=== PATIENT | male | born 1970 | race Caucasian/White ===

== ENCOUNTER 2019-10-04 17:53 | Inpatient (IN) | payer OTHER ==
[2019-10-04 18:12] VITALS: BMI 27.4
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
[2019-10-04] MEDS ORDERED: METHOCARBAMOL 500 MG TABLET PO PRN (19:28)
[2019-10-04] MEDS ORDERED: hydrOXYzine PAMOATE 25 MG CAPSULE (FP) PO PRN (19:28)
[2019-10-04] MEDS ORDERED: METHADONE HCL 10 MG TABLET (FOR DETOX USE ONLY) PO ONE (19:28)
[2019-10-04] MEDS ORDERED: NALOXONE HCL 0.4 MG/ML VIAL IM PRN (19:28)
[2019-10-04] MEDS ORDERED: MAGNESIUM CITRATE 300 ML BOTTLE PO PRN (19:28)
[2019-10-04] MEDS ORDERED: MAG HYDROX/AL HYDROX/SIMETH 30 ML UNIT-DOSE CUP PO PRN (19:28)
[2019-10-04] MEDS ORDERED: DICYCLOMINE HCL 10 MG CAPSULE PO PRN (19:28)
[2019-10-04] MEDS ORDERED: diazePAM 5 MG TABLET PO PRN (19:28)
[2019-10-04] MEDS ORDERED: guaiFENesin 200 MG/10 ML 10 ML UNIT-DOSE CUPS PO PRN (19:28)
[2019-10-04] MEDS ORDERED: NICOTINE POLACRILEX 2 MG GUM BUC PRN (19:28)
[2019-10-04] MEDS ORDERED: IBUPROFEN 400 MG TABLET (FP) PO PRN (19:28)
[2019-10-04] MEDS ORDERED: ONDANSETRON *ODT* 4 MG TABLET SL ONE (19:28)
[2019-10-04] MEDS ORDERED: ACETAMINOPHEN 325 MG TABLET (FP) PO PRN ×2 (19:28)
[2019-10-04] MEDS ORDERED: BISMUTH SUBSALICYLATE 524 MG/30 ML UD PO PRN (19:28)
[2019-10-04] MEDS ORDERED: MENTHOL/PHENOL 1 EACH UD MM PRN (19:28)
[2019-10-04] MEDS ORDERED: MAGNESIUM HYDROX 2400MG/30ML ORAL SUSPENSION 30 ML CUP PO PRN (19:28)
[2019-10-04] MEDS ORDERED: P-EPHED 60MG/TRIPROLIDI 2.5MG TABLET PO PRN (19:28)
[2019-10-04] MEDS ORDERED: cloNIDine HCL 0.1 MG TABLET PO PRN (19:28)
[2019-10-04] MEDS ORDERED: TRIMETHOBENZAMIDE HCL 200MG/2ML INJ IM PRN (19:37)
[2019-10-04] MEDS ORDERED: THIAMINE HCL 100 MG TABLET (FP) PO SCH (22:00)
[2019-10-04] MEDS ORDERED: MELATONIN 5 MG TABLETS PO SCH (22:00)
[2019-10-04] MEDS: diazePAM 5 MG TABLET PO SCH (22:31)
[2019-10-05] MEDS: diazePAM 5 MG TABLET PO SCH (06:09)
[2019-10-05] MEDS ORDERED: METHADONE HCL 10 MG TABLET (FOR DETOX USE ONLY) ONE (08:42)
[2019-10-05] MEDS ORDERED: METHADONE HCL 5 MG TABLET (FOR DETOX USE ONLY) ONE (08:42)
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
--- NOTE | 2019-10-05 09:24 | EKG ---
Test Reason : Blood Pressure : / mmHG Vent. Rate : 054 BPM Atrial Rate : 054 BPM P-R Int : 150 ms QRS Dur : 100 ms QT Int : 432 ms P-R-T Axes : -13 073 054 degrees QTc Int : 409 ms SINUS BRADYCARDIA OTHERWISE NORMAL ECG NO PREVIOUS ECGS AVAILABLE Confirmed by Sawyer Alvarado ([id number]) on 10/05/2019 9:24:21 AM Referred By: Confirmed By:Sawyer Alvarado
[2019-10-05] MEDS ORDERED: hydrOXYzine PAMOATE 50 MG CAPSULE (FP) PO PRN (09:31)
[2019-10-05 09:52] VITALS: BP 104/74; PULSE 63; TEMP 96.9
[2019-10-05] MEDS ORDERED: VENLAFAXINE HCL 150 MG E.R. CAPSULE PO SCH (10:00)
[2019-10-05] MEDS ORDERED: METHADONE (DETOX) 20 MG, METHADONE (DETOX) 5 MG PO ONE (10:00)
[2019-10-05] MEDS ORDERED: NICOTINE 14 MG/24 HOURS TOPICAL PATCH TD SCH (10:00)
[2019-10-05] MEDS ORDERED: PRENATAL VITAMINS W/ FOLIC ACID TABLET (FP) PO SCH (10:00)
[2019-10-05] MEDS ORDERED: ESCITALOPRAM OXALATE 10 MG TABLET PO SCH (10:00)
[2019-10-05 11:04] LABS: HEMATOCRIT 41.5 % (35.4-49); HEMOGLOBIN 14.2 GM/dL (11.7-16.9); MCH 32.1 pg (25.7-33.7); MCHC 34.2 g/dl (32.0-35.9); MEAN PLT VOLUME 10.5 fl (7.5-11.1); PLATELET COUNT 136 K/MM3 (134-434); RBC 4.41 M/mm3 (4.00-5.60); RDW 12.5 % (11.9-15.9); WHITE BLOOD COUNT 6.1 K/mm3 (4.0-10.0)
[2019-10-05 11:14] LABS: URINE APPEARANCE CLEAR; URINE BILIRUBIN NEGATIVE (NEGATIVE); URINE COLOR YELLOW; URINE GLUCOSE (UA) NEGATIVE (NEGATIVE); URINE KETONE NEGATIVE (NEGATIVE); URINE LEUK ESTERASE NEGATIVE (NEGATIVE); URINE NITRITE NEGATIVE (NEGATIVE); URINE PROTEIN NEGATIVE (NEGATIVE)
[2019-10-05 11:18] LABS: BILIRUBIN,TOTAL 0.9 mg/dL (0.2-1); BLOOD UREA NITROGEN 12.9 mg/dL (7-18); CALCIUM 9.3 mg/dL (8.5-10.1); CREATININE 0.9 mg/dL (0.55-1.3); POTASSIUM 4.5 mmol/L (3.5-5.1); TOT PROT 8.2 g/dl (6.4-8.2)
--- NOTE | 2019-10-05 13:36 | DS ---
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 to call to the methadone program mr kahn insists to leave the detox to go to [address] "every day" in order to receive "welfare" benefits General Appearance: Yes: Moderate Distress, Tremorous, Sweating, Anxious HEENTM: Yes: EOMI, Normocephalic, Normal Voice, RACHEL, Pharynx Normal, Other (POOR DENTITION) Respiratory: Yes: Chest Non-Tender, Lungs Clear, Normal Breath Sounds, No Respiratory Distress, No Accessory Muscle Use Neck: Yes: No masses,lesions,Nodules, Supple, Trachea in good position Breast: Yes: Breasts Symetrical Cardiology: Yes: Regular Rhythm, Regular Rate, S1, S2 Abdominal: Yes: Normal Bowel Sounds, Non Tender, Soft Genitourinary: Yes: Within Normal Limits Back: Yes: Normal Inspection Musculoskeletal: Yes: full range of Motion, Other (DRAG LEFT LEG WHEN WALKING) Extremities: Yes: Normal Capillary Refill, Normal Range of Motion, Non-Tender, Tremors, Other (LEFT FOOT CONTRACTURES OF TOES) Neurological: Yes: Fully Oriented, Alert, Motor Strength 5/5, Depressed Affect, Other (HEARING LOSS OF BOTH EARS) Integumentary: Yes: Cold, Clammy, Track Braga Lymphatic: Yes: Within Normal Limits Pertinent Past History: time for discharge 58 minutes benefits of valium and methadone regimen completion discussed with mr kahn - Physical Exam Results Vital Signs: Vital Signs Temperature 96.9 F L 10/05/19 08:52 Pulse Rate 63 10/05/19 08:52 Respiratory Rate 18 10/05/19 08:52 Blood Pressure 104/74 10/05/19 08:52 O2 Sat by Pulse Oximetry (%) 99 10/05/19 07:39 Pertinent Admission Physical Exam Findings: alcohol and opiate withdrawal Laboratory Tests 10/05/19 10/05/19 10/05/19 08:00 08:00 08:00 WBC 6.1 RBC 4.41 Hgb 14.2 Hct 41.5 MCV 94.0 MCH 32.1 MCHC 34.2 RDW 12.5 Plt Count 136 MPV 10.5 Sodium 139 Potassium 4.5 Chloride 104 Carbon Dioxide 30 Anion Gap 5 L BUN 12.9 Creatinine 0.9 Est GFR (CKD-EPI)AfAm 117.47 Est GFR (CKD-EPI)NonAf 101.35 Random Glucose 74 Calcium 9.3 Total Bilirubin 0.9 AST 37 ALT 48 Alkaline Phosphatase 82 Total Protein 8.2 Albumin 4.0 Urine Color Urine Appearance Urine pH Ur Specific [place] Urine Protein Urine Glucose (UA) Urine Ketones Urine Blood Urine Nitrite Urine Bilirubin Urine Urobilinogen Ur Leukocyte Esterase Syphilis Serology Non-reactive 10/05/19 08:00 WBC RBC Hgb Hct MCV MCH MCHC RDW Plt Count MPV Sodium Potassium Chloride Carbon Dioxide Anion Gap BUN Creatinine Est GFR (CKD-EPI)AfAm Est GFR (CKD-EPI)NonAf Random Glucose Calcium Total Bilirubin AST ALT Alkaline Phosphatase Total Protein Albumin Urine Color Yellow Urine Appearance Clear Urine pH 7.0 Ur Specific [place] 1.018 Urine Protein Negative Urine Glucose (UA) Negative Urine Ketones Negative Urine Blood Negative Urine Nitrite Negative Urine Bilirubin Negative Urine Urobilinogen 1.0 Ur Leukocyte Esterase Negative Syphilis Serology lab noted - Treatment Hospital Course: Detox Protocol Followed, Discharged Condition Good Patient has Accepted a Rehab Referral to: [facility] - Medication Discharge Medications: Ambulatory Orders Alprazolam 2 mg PO PRN MDD 4 TABS/DAILY 10/04/19 Escitalopram Oxalate [Lexapro -] 10 mg PO DAILY 10/04/19 Venlafaxine HCl ER [Effexor Xr -] 150 mg PO DAILY 10/04/19 hydrOXYzine PAMOATE [Vistaril -] 25 mg PO TID 10/04/19 - Diagnosis (1) Alcohol dependence with uncomplicated withdrawal Status: Acute (2) Opioid dependence with withdrawal Status: Acute (3) Substance induced mood disorder Status: Suspected (4) Hepatitis C Status: Chronic Qualifiers: Viral hepatitis chronicity: carrier Qualified Code(s): B18.2 - Chronic viral hepatitis C (5) Nicotine dependence Status: Acute Qualifiers: Nicotine product type: cigarettes Substance use status: in withdrawal Qualified Code(s): F17.213 - Nicotine dependence, cigarettes, with withdrawal - AMA Did Patient Leave Against Medical Advice: Yes CIWA Score - CIWA Score Nausea/Vomitin-No Nausea/No Vomiting Muscle Tremors: None Anxiety: 4-Mod. Anxious/Guarded Agitation: 3 Paroxysmal Sweats: 4-Forehead w/Sweat Beads Orientation: 0-Oriented Tacttile Disturbances: 0-None Auditory Disturbances: 0-None Visual Disturbances: 0-None Headache: 0-None Present CIWA-Ar Total Score: 11 COWS (PN) - Opiate Withdrawal Resting Pulse: 0= MI 80 or Below Sweatin= No chills or Flushing Restless Observation: 1= Difficult to Sit Still Pupil Size: 1= Pupils >than Normal Bone or Joint Aches: 1= Mild Discomfort Runny Nose/ Eye Tearin= Nasal Congestion GI Upset > 30mins: 2= Nausea/Diarrhea Tremor Observation of Outstretched Hands: 2= Slight Tremor Visible Yawning Observation: 0= None Anxiety or Irritability: 2=Irritable/Anxious Goose Flesh Skin: 0=Smooth Skin COWS Score: 10
[2019-10-05] MEDS ORDERED: SUVOREXANT 10 MG TABLET PO PRN (22:00)
[2019-10-06] MEDS ORDERED: diazePAM 5 MG TABLET PO SCH (06:00)
[2019-10-06] MEDS ORDERED: METHADONE HCL 10 MG TABLET (FOR DETOX USE ONLY) PO ONE (10:00)
[2019-10-07] MEDS ORDERED: diazePAM 5 MG TABLET PO ONE (06:00)
[2019-10-07] MEDS ORDERED: METHADONE (DETOX) 10 MG, METHADONE (DETOX) 5 MG PO ONE (10:00)
[2019-10-08] MEDS ORDERED: METHADONE HCL 10 MG TABLET (FOR DETOX USE ONLY) PO ONE (10:00)
[2019-10-09] MEDS ORDERED: METHADONE HCL 5 MG TABLET (FOR DETOX USE ONLY) PO ONE (06:00)
== END 2019-10-05 12:16 | disposition left against medical advice (07) | DRG 770 ==
LOC: YASAS 17:53 → Y3N 19:44
PROVIDERS: ADMIT Allergy & Immunology; ATTEND Allergy & Immunology
PROC: HZ2ZZZZ Detoxification Services for Substance Abuse Treatment (ICD-10-PCS; principal; 2019-10-04)
DX: F11.23 Opioid dependence with withdrawal (principal); F10.230 Alcohol dependence with withdrawal, uncomplicated; F10.220 Alcohol dependence with intoxication, uncomplicated; F17.213 Nicotine dependence, cigarettes, with withdrawal; F19.24 Other psychoactive substance dependence with psychoactive substance-induced mood disorder; F19.280 Other psychoactive substance dependence with psychoactive substance-induced anxiety disorder; F19.282 Other psychoactive substance dependence with psychoactive substance-induced sleep disorder; F25.9 Schizoaffective disorder, unspecified; F31.9 Bipolar disorder, unspecified; B18.2 Chronic viral hepatitis C; J43.9 Emphysema, unspecified; H91.93 Unspecified hearing loss, bilateral; L90.5 Scar conditions and fibrosis of skin; Z86.59 Personal history of other mental and behavioral disorders; Z88.8 Allergy status to other drugs, medicaments and biological substances; Z86.79 Personal history of other diseases of the circulatory system; Z91.013 Allergy to seafood; Z91.018 Allergy to other foods; Z91.5 Personal history of self-harm
CPT/HCPCS: 36415; 80053; 81003; 85027; 86780; 93005; 93010; U0003

== ENCOUNTER 2020-08-02 14:45 | Emergency (ER) | payer OTHER ==
[2020-08-02 15:09] VITALS: TEMP 98.8; BMI 22.1
[2020-08-02 15:32] LABS: INR 1.2 (0.82-1.09); PROTHROMBIN TIME (PATIENT) 13.3 SEC (10.2-13.0)
[2020-08-02 15:39] LABS: HEMOGLOBIN 13.5 GM/dl (11.7-16.9)
[2020-08-02 15:42] LABS: HEMATOCRIT 40.5 % (35.4-49); MCH 32.5 pg (25.7-33.7); MCHC 33.3 g/dl (32.0-35.9); MEAN CELL VOLUME 97.5 fl (80-96); MEAN PLT VOLUME 10.2 fl (7.5-11.1); PLATELET COUNT 79 K/MM3 (134-434); RBC 4.15 M/mm3 (4.00-5.60); RDW 12.2 % (11.9-15.9); WHITE BLOOD COUNT 5.3 K/mm3 (4.0-10.8)
[2020-08-02 15:47] LABS: ALBUMIN 4.2 g/dl (3.4-5.0); ALK PHOS 53 U/L (45-117); ANION GAP 6 MMOL/L (8-16); CALCIUM 8.4 mg/dl (8.5-10); CHLORIDE 106 mmol/L (98-107); CO2 22 mmol/L (21-32); CREATININE 0.6 mg/dl (0.55-1.3); GLUCOSE,RANDOM 83 mg/dl (74-106); SGOT/AST 25 U/L (15-37); SGPT/ALT 17 U/L (13-61); SODIUM 134 mmol/L (136-145); TOT PROT 6.8 g/dl (6.4-8.2)
[2020-08-02 16:32] LABS: PLATELET ESTIMATE DECREASED
[2020-08-02 17:05] VITALS: BP 115/75; PULSE 61
== END 2020-08-02 17:00 | disposition home or self-care (01) ==
LOC: FER 14:45
DX: I49.3 Ventricular premature depolarization (principal)
CPT/HCPCS: 36415; 71045-TC-FY; 80053; 82550; 84484; 85025; 85610; 93005; 99284-25; C9803; U0003; U0005

== ENCOUNTER → 2020-08-02 | Day surgery (SDC) | payer OTHER ==
[2020-08-01 11:37] VITALS: BMI 22.1
[~2020-08-02] MED LIST: MIDAZOLAM HCL 2 MG/2 ML SINGLE DOSE VIAL ONE
[2020-08-02 12:53] VITALS: BP 101/67; PULSE 70; TEMP 98.4
== END | disposition home or self-care (01) ==
LOC: FASU-ENDO 12:22
PROVIDERS: ATTEND Internal Medicine Gastroenterology
PROC: 0DJ08ZZ Inspection of Upper Intestinal Tract, Via Natural or Artificial Opening Endoscopic (ICD-10-PCS; principal; 2020-08-02)
DX: Z53.09 Procedure and treatment not carried out because of other contraindication (principal); R10.9 Unspecified abdominal pain; R19.7 Diarrhea, unspecified

== ENCOUNTER 2021-03-30 04:46 | Day surgery (SDC) | payer OTHER ==
[2021-03-29 10:14] VITALS: BMI 26.2
[2021-03-30 12:44] VITALS: TEMP 97.8
[2021-03-30 13:17] VITALS: BP 116/73; PULSE 68
== END 2021-03-30 14:08 | disposition home or self-care (01) ==
LOC: JASU-ENDO 04:46
PROVIDERS: ATTEND Internal Medicine Gastroenterology
PROC: 0DB78ZX Excision of Stomach, Pylorus, Via Natural or Artificial Opening Endoscopic, Diagnostic (ICD-10-PCS; principal; 2021-03-30 12:15)
DX: K29.50 Unspecified chronic gastritis without bleeding (principal)
CPT/HCPCS: 88305-TC; 88342-TC

== ENCOUNTER 2021-12-12 04:12 | Day surgery (SDC) | payer OTHER ==
[2021-12-08 15:14] VITALS: BMI 24.4
[2021-12-12 08:18] VITALS: RESP 18
[2021-12-12] MEDS ORDERED: ePHEDrine SULFATE 50 MG/1 ML AMPULE ONE (10:36)
[2021-12-12 12:36] VITALS: BP 124/78; PULSE 61; TEMP 97.8
== END 2021-12-12 12:30 | disposition home or self-care (01) ==
LOC: JASU-SURG 04:12
PROVIDERS: ATTEND Urology
DX: Z53.8 Procedure and treatment not carried out for other reasons (principal)
CPT/HCPCS: 87086

== ENCOUNTER 2022-01-10 04:07 | Day surgery (SDC) | payer OTHER ==
[2022-01-08 11:37] VITALS: BMI 24.1
[2022-01-10] MEDS ORDERED: PROPOFOL 40 ML ONE (11:26)
[2022-01-10] MEDS ORDERED: MIDAZOLAM HCL 2 MG/2 ML SINGLE DOSE VIAL ONE (11:27)
[2022-01-10] MEDS ORDERED: VANCOMYCIN 1,000 MG VIAL (RESTRICTED TO ID ONLY) IVPB ONE (11:54)
[2022-01-10] MEDS ORDERED: ELECTROLYTE-148 SOLN 1,000 ML IV SCH (12:00)
[2022-01-10] MEDS ORDERED: PROMETHAZINE HCL 25 MG/1 ML VIAL IVPUSH PRN (12:34)
[2022-01-10] MEDS ORDERED: oxyCODONE HCL 5 MG TABLET PO PRN (12:34)
[2022-01-10 14:11] VITALS: TEMP 97.6
[2022-01-10 16:14] VITALS: BP 110/65; PULSE 62; RESP 18
== END 2022-01-10 15:05 | disposition home or self-care (01) ==
LOC: JASU-SURG 04:07
PROVIDERS: ATTEND Urology
PROC: 0VT08ZZ Resection of Prostate, Via Natural or Artificial Opening Endoscopic (ICD-10-PCS; principal; 2022-01-10 11:00)
DX: N40.1 Benign prostatic hyperplasia with lower urinary tract symptoms (principal); R33.8 Other retention of urine
CPT/HCPCS: 94760

== ENCOUNTER 2022-02-02 08:09 | Emergency (ER) | payer OTHER ==
[2022-02-02 08:16] VITALS: BP 121/78; PULSE 85; RESP 18; TEMP 98; BMI 47.0
[2022-02-02] MEDS ORDERED: LIDOCAINE HCL 2% JELLY 10 ML CARTRIDGE UR ONE (08:46)
[2022-02-02 09:28] LABS: BASO % 0.7 % (0-2.0); EOS % 1.3 % (0-4.5); HEMATOCRIT 44.2 % (35.4-49); HEMOGLOBIN 15.3 GM/dL (11.7-16.9); LYMPH % 27.2 % (8-40); MCH 33.2 pg (25.7-33.7); MCHC 34.6 g/dl (32.0-35.9); MEAN CELL VOLUME 95.9 fl (80-96); MEAN PLT VOLUME 10.4 fl (7.5-11.1); MONO % 8.5 % (3.8-10.2); NEUT % 62.3 % (42.8-82.8); PLATELET COUNT 167 10^3/uL (134-434); RBC 4.61 M/mm3 (4.00-5.60); RDW 12.6 % (11.9-15.9); WHITE BLOOD COUNT 4.5 K/mm3 (4.0-10.0)
[2022-02-02 09:32] LABS: EPI CELLS 4 /uL (0-25.1); HYALINE CASTS 1 /uL (0-3.1); PH,URINE 5.5 (5.0-8.0); URINE APPEARANCE CLOUDY; URINE BACTERIA 140 /uL (0-1359); URINE BILIRUBIN 1+ (NEGATIVE); URINE COLOR DK YELLOW; URINE GLUCOSE (UA) NEGATIVE (NEGATIVE); URINE KETONE 1+ (NEGATIVE); URINE LEUK ESTERASE 2+ (NEGATIVE); URINE NITRITE NEGATIVE (NEGATIVE); URINE PROTEIN 2+ (NEGATIVE); URINE WBC 2585 /uL (0-25.8)
[2022-02-02 09:49] LABS: URINE CRYSTALS NEGATIVE /hpf; URINE RBC 29.5 /uL (0-23.9); YEAST NEGATIVE (NEGATIVE)
[2022-02-02 09:59] LABS: ALBUMIN 4.1 g/dl (3.4-5.0); CALCIUM 9.4 mg/dL (8.5-10.1)
[2022-02-02 10:01] LABS: CREATININE 0.9 mg/dL (0.55-1.3)
[2022-02-02 10:04] LABS: BILIRUBIN,TOTAL 0.5 mg/dL (0.2-1); TOT PROT 7.5 g/dl (6.4-8.2)
== END 2022-02-02 11:03 | disposition left against medical advice (07) ==
LOC: JER 08:09
PROC: 0T9B70Z Drainage of Bladder with Drainage Device, Via Natural or Artificial Opening (ICD-10-PCS; principal; 2022-02-02)
DX: N30.01 Acute cystitis with hematuria (principal)
CPT/HCPCS: 36415; 80053; 81003; 85025; 87086; 99283-25

== ENCOUNTER 2022-02-03 14:02 | Emergency (ER) | payer OTHER ==
[2022-02-03 14:48] VITALS: BP 102/52; PULSE 66; RESP 20; TEMP 98.2; BMI 21.9
[2022-02-03] MEDS ORDERED: KETOROLAC TROMETHAMINE 30 MG/1 ML VIAL IM ONE (15:48)
[2022-02-03] MEDS ORDERED: LIDOCAINE HCL 2% JELLY 10 ML CARTRIDGE UR ONE (15:48)
[2022-02-03] MEDS ORDERED: traMADol HCL 50 MG TABLET PO ONE (15:48)
[2022-02-03] MEDS ORDERED: traMADol HCL 50 MG TABLET ONE (16:01)
[2022-02-03] MEDS ORDERED: KETOROLAC TROMETHAMINE 30 MG/1 ML VIAL ONE (16:01)
[2022-02-03] MEDS ORDERED: GENTAMICIN IVPB ONE (16:15)
[2022-02-03] MEDS ORDERED: WATER IVPB ONE (16:15)
[2022-02-03] MEDS ORDERED: DEXTROSE 5% IVPB ONE (16:15)
[2022-02-03] MEDS ORDERED: WATER IM SCH (16:30)
[2022-02-03] MEDS ORDERED: DEXTROSE 5% IM SCH (16:30)
[2022-02-03] MEDS ORDERED: GENTAMICIN IM SCH (16:30)
[2022-02-03] MEDS ORDERED: GENTAMICIN 80 MG IVPB ONE (16:38)
[2022-02-03] MEDS ORDERED: PREMIXED IVPB ONE (16:38)
[2022-02-03] MEDS ORDERED: LIDOCAINE HCL 2% JELLY 6 ML TP ONE (16:44)
[2022-02-03] MEDS ORDERED: GENTAMICIN SO4 80 MG/2 ML VIAL IM ONE (16:45)
[2022-02-03] MEDS ORDERED: GENTAMICIN SO4 80 MG/2 ML VIAL ONE (16:50)
== END 2022-02-03 21:14 | disposition home or self-care (01) ==
LOC: JER 14:02
PROC: 3E02329 Introduction of Other Anti-infective into Muscle, Percutaneous Approach (ICD-10-PCS; principal; 2022-02-03)
PROC: 3E0233Z Introduction of Anti-inflammatory into Muscle, Percutaneous Approach (ICD-10-PCS; 2022-02-03)
DX: N30.01 Acute cystitis with hematuria (principal)
CPT/HCPCS: 99284-25

== ENCOUNTER 2022-02-04 06:43 | Emergency (ER) | payer OTHER ==
[2022-02-04 06:49] VITALS: BMI 21.6
[2022-02-04] MEDS ORDERED: ACETAMINOPHEN 500 MG TABLET (FP) PO ONE (08:06)
[2022-02-04] MEDS ORDERED: ACETAMINOPHEN 500 MG TABLET (FP) ONE (08:25)
[2022-02-04 08:54] LABS: BASO % 0.3 % (0-2.0); EOS % 1.5 % (0-4.5); HEMATOCRIT 40.7 % (35.4-49); HEMOGLOBIN 14.1 GM/dL (11.7-16.9); LYMPH % 14.4 % (8-40); MCH 33.1 pg (25.7-33.7); MCHC 34.7 g/dl (32.0-35.9); MEAN CELL VOLUME 95.4 fl (80-96); NEUT % 74.8 % (42.8-82.8); PLATELET COUNT 140 10^3/uL (134-434); RBC 4.27 M/mm3 (4.00-5.60); RDW 12.5 % (11.9-15.9); WHITE BLOOD COUNT 7.7 K/mm3 (4.0-10.0)
[2022-02-04 08:58] LABS: PH,URINE 5.5 (5.0-8.0); URINE APPEARANCE CLEAR; URINE BILIRUBIN NEGATIVE (NEGATIVE); URINE COLOR ORANGE; URINE GLUCOSE (UA) NEGATIVE (NEGATIVE); URINE KETONE TRACE (NEGATIVE); URINE LEUK ESTERASE 2+ (NEGATIVE); URINE NITRITE NEGATIVE (NEGATIVE); URINE PROTEIN 2+ (NEGATIVE); URINE UROBILINOGEN 0.2 mg/dL (0.2-1.0)
[2022-02-04 09:01] LABS: INR 1.16 (0.83-1.09); PROTHROMBIN TIME (PATIENT) 13.4 SEC (9.7-13.0)
[2022-02-04 09:04] LABS: ACTIVATED PTT 33.4 SECONDS (25.2-36.5)
[2022-02-04 09:13] LABS: EPI CELLS 49 /uL (0-25.1); HYALINE CASTS 5 /uL (0-3.1); URINE BACTERIA 3 /uL (0-1359); URINE RBC 1381 /uL (0-23.9); URINE WBC 232 /uL (0-25.8)
[2022-02-04 09:21] LABS: BLOOD UREA NITROGEN 7.9 mg/dL (7-18); CALCIUM 9.3 mg/dL (8.5-10.1)
[2022-02-04 09:22] LABS: ALBUMIN 3.8 g/dl (3.4-5.0)
[2022-02-04 09:25] LABS: CREATININE 0.7 mg/dL (0.55-1.3)
[2022-02-04 09:26] LABS: BILIRUBIN,TOTAL 0.8 mg/dL (0.2-1)
[2022-02-04 10:48] VITALS: BP 111/60; PULSE 52; RESP 16; TEMP 98
== END 2022-02-04 10:48 | disposition home or self-care (01) ==
LOC: JER 06:43
DX: N13.9 Obstructive and reflux uropathy, unspecified (principal)
CPT/HCPCS: 36415; 80053; 81003; 85025; 85610; 85730; 86850; 86900; 86901; 87086; 99283-25

== ENCOUNTER 2022-02-22 06:41 | Emergency (ER) | payer OTHER ==
[2022-02-22 06:48] VITALS: BP 97/63; PULSE 85; RESP 17; TEMP 98.7; BMI 21.6
[2022-02-22] MEDS ORDERED: SODIUM CHLORIDE 1,000 ML IV STA (08:57)
[2022-02-22 09:22] LABS: HEMATOCRIT 43.3 % (35.4-49); HEMOGLOBIN 14.8 GM/dL (11.7-16.9); MCH 32.3 pg (25.7-33.7); MCHC 34.1 g/dl (32.0-35.9); MEAN CELL VOLUME 94.6 fl (80-96); MEAN PLT VOLUME 10.3 fl (7.5-11.1); PLATELET COUNT 90 10^3/uL (134-434); RBC 4.57 M/mm3 (4.00-5.60); RDW 12.5 % (11.9-15.9); WHITE BLOOD COUNT 2.6 K/mm3 (4.0-10.0)
[2022-02-22 09:41] LABS: EPI CELLS 6 /uL (0-25.1); HYALINE CASTS 162 /uL (0-3.1); PH,URINE 5.5 (5.0-8.0); URINE APPEARANCE CLOUDY; URINE BACTERIA 4 /uL (0-1359); URINE BILIRUBIN NEGATIVE (NEGATIVE); URINE COLOR DK YELLOW; URINE GLUCOSE (UA) NEGATIVE (NEGATIVE); URINE KETONE TRACE (NEGATIVE); URINE LEUK ESTERASE 2+ (NEGATIVE); URINE NITRITE NEGATIVE (NEGATIVE); URINE PROTEIN 1+ (NEGATIVE); URINE RBC 57 /uL (0-23.9); URINE WBC 894 /uL (0-25.8)
[2022-02-22 09:49] LABS: ALBUMIN 3.8 g/dl (3.4-5.0); BLOOD UREA NITROGEN 16.5 mg/dL (7-18); CALCIUM 8.9 mg/dL (8.5-10.1)
[2022-02-22 09:52] LABS: CREATININE 0.9 mg/dL (0.55-1.3)
[2022-02-22] MEDS ORDERED: PHENAZOPYRIDINE HCL 100 MG TABLET (FP) PO ONE (09:52)
[2022-02-22 09:53] LABS: BILIRUBIN,TOTAL 0.6 mg/dL (0.2-1); TOT PROT 7.2 g/dl (6.4-8.2)
[2022-02-22] MEDS ORDERED: PHENAZOPYRIDINE HCL 100 MG TABLET (FP) ONE (09:55)
[2022-02-22 10:15] LABS: ANISOCYTOSIS 0; HELMET CELLS 0; HOWELL-JOLLY BODIES 0; MACROCYTOSIS 0; OVALOCYTE 0; ROULEAU 0; SICKELED CELLS 0; TARGET CELLS 0; TEAR DROP CELLS 0; TOXIC GRANULATION 0
== END 2022-02-22 11:42 | disposition home or self-care (01) ==
LOC: JERFT 06:41 → JER 06:41 → JERFT 11:42
PROC: 3E0337Z Introduction of Electrolytic and Water Balance Substance into Peripheral Vein, Percutaneous Approach (ICD-10-PCS; principal; 2022-02-22)
DX: N30.00 Acute cystitis without hematuria (principal)
CPT/HCPCS: 36415; 76856-TC; 80053; 81003; 84153; 84154; 85025; 87086; 99284-25

== ENCOUNTER 2022-03-02 11:05 | Emergency (ER) | payer OTHER ==
[2022-03-02 11:14] VITALS: BP 107/57; PULSE 50; RESP 18; TEMP 98.6; BMI 21.6
[2022-03-02] MEDS ORDERED: KETOROLAC TROMETHAMINE 30 MG/1 ML VIAL IVPUSH ONE (11:58)
[2022-03-02] MEDS ORDERED: morphine CARPU-JECT 2 MG/1 ML DISP.SYRIN IVPUSH ONE (11:58)
[2022-03-02] MEDS ORDERED: SODIUM CHLORIDE 0.9% 500 ML INFUS.BAG IV ONE (11:58)
[2022-03-02] MEDS ORDERED: KETOROLAC TROMETHAMINE 30 MG/1 ML VIAL ONE (13:02)
[2022-03-02 13:23] LABS: BASO % 0.4 % (0-2.0); EOS % 0.8 % (0-4.5); HEMOGLOBIN 15.3 GM/dL (11.7-16.9); LYMPH % 24.3 % (8-40); MCH 32.7 pg (25.7-33.7); MCHC 34.9 g/dl (32.0-35.9); MEAN CELL VOLUME 93.8 fl (80-96); MEAN PLT VOLUME 10.6 fl (7.5-11.1); MONO % 12.8 % (3.8-10.2); NEUT % 61.7 % (42.8-82.8); PLATELET COUNT 145 10^3/uL (134-434); RBC 4.69 M/mm3 (4.00-5.60); RDW 12.8 % (11.9-15.9); WHITE BLOOD COUNT 5.9 K/mm3 (4.0-10.0)
[2022-03-02 13:25] LABS: EPI CELLS 27 /uL (0-25.1); HYALINE CASTS 9 /uL (0-3.1); PH,URINE 5.5 (5.0-8.0); URINE APPEARANCE TURBID; URINE BACTERIA 11 /uL (0-1359); URINE BILIRUBIN 1+ (NEGATIVE); URINE COLOR ORANGE; URINE GLUCOSE (UA) NEGATIVE (NEGATIVE); URINE KETONE TRACE (NEGATIVE); URINE LEUK ESTERASE 2+ (NEGATIVE); URINE NITRITE NEGATIVE (NEGATIVE); URINE PROTEIN 3+ (NEGATIVE); URINE RBC 17110 /uL (0-23.9); URINE WBC 310 /uL (0-25.8)
[2022-03-02 13:49] LABS: CALCIUM 9.3 mg/dL (8.5-10.1)
[2022-03-02 13:50] LABS: ALBUMIN 4.3 g/dl (3.4-5.0)
[2022-03-02 13:54] LABS: BILIRUBIN,TOTAL 0.4 mg/dL (0.2-1); TOT PROT 7.8 g/dl (6.4-8.2)
== END 2022-03-02 16:04 | disposition home or self-care (01) ==
LOC: JER 11:05
PROC: 3E033GC Introduction of Other Therapeutic Substance into Peripheral Vein, Percutaneous Approach (ICD-10-PCS; principal; 2022-03-02)
DX: R33.9 Retention of urine, unspecified (principal)
CPT/HCPCS: 36415; 74177-TC; 80053; 81003; 82550; 85025; 87086; 99285-25; Q9967

== ENCOUNTER 2022-04-20 09:35 | Emergency (ER) | payer OTHER ==
[2022-04-20 09:38] VITALS: BP 120/75; PULSE 87; RESP 18; TEMP 97.9; BMI 19.3
[2022-04-20] MEDS ORDERED: SODIUM CHLORIDE 1,000 ML IV STA (10:56)
[2022-04-20] MEDS ORDERED: ACETAMINOPHEN 1000 MG/100 ML BAG IVPB ONE (10:56)
[2022-04-20] MEDS ORDERED: ACETAMINOPHEN INJECTION 100 ML IVPB ONE (11:01)
[2022-04-20] MEDS ORDERED: LORazepam 0.5 MG TABLET PO ONE (11:20)
[2022-04-20] MEDS ORDERED: LORazepam 0.5 MG TABLET ONE (11:27)
[2022-04-20 11:46] LABS: BASO % 0.3 % (0-2.0); EOS % 1.4 % (0-4.5); HEMATOCRIT 43.4 % (35.4-49); HEMOGLOBIN 15.4 GM/dL (11.7-16.9); LYMPH % 26.1 % (8-40); MCH 33.9 pg (25.7-33.7); MCHC 35.6 g/dl (32.0-35.9); MEAN CELL VOLUME 95.3 fl (80-96); MEAN PLT VOLUME 10.7 fl (7.5-11.1); MONO % 10.4 % (3.8-10.2); NEUT % 61.8 % (42.8-82.8); PLATELET COUNT 138 10^3/uL (134-434); RBC 4.55 M/mm3 (4.00-5.60); RDW 13.4 % (11.9-15.9); WHITE BLOOD COUNT 4.8 K/mm3 (4.0-10.0)
[2022-04-20 12:05] LABS: CALCIUM 9.8 mg/dL (8.5-10.1)
[2022-04-20 12:06] LABS: ALBUMIN 4.2 g/dl (3.4-5.0); BLOOD UREA NITROGEN 11.8 mg/dL (7-18)
[2022-04-20 12:09] LABS: CREATININE 0.8 mg/dL (0.55-1.3)
[2022-04-20 12:10] LABS: BILIRUBIN,TOTAL 0.4 mg/dL (0.2-1); TOT PROT 7.8 g/dl (6.4-8.2)
[2022-04-20 14:47] LABS: URINE APPEARANCE CLEAR; URINE COLOR YELLOW
[2022-04-20 14:48] LABS: URINE BILIRUBIN NEGATIVE (NEGATIVE); URINE GLUCOSE (UA) NEGATIVE (NEGATIVE); URINE KETONE TRACE (NEGATIVE); URINE LEUK ESTERASE NEGATIVE (NEGATIVE); URINE NITRITE NEGATIVE (NEGATIVE); URINE PROTEIN NEGATIVE (NEGATIVE); URINE UROBILINOGEN 0.2 mg/dL (0.2-1.0)
== END 2022-04-20 14:55 | disposition home or self-care (01) ==
LOC: JER 09:35
PROC: 3E0337Z Introduction of Electrolytic and Water Balance Substance into Peripheral Vein, Percutaneous Approach (ICD-10-PCS; principal; 2022-04-20)
DX: K51.90 Ulcerative colitis, unspecified, without complications (principal)
CPT/HCPCS: 36415; 74177-TC; 80053; 81003; 83690; 85025; 87086; 99285-25; Q9967

== ENCOUNTER 2022-07-20 09:13 | Emergency (ER) | payer OTHER ==
[2022-07-20 09:31] VITALS: BP 122/68; PULSE 66; RESP 18; TEMP 97.9; BMI 18.3
[2022-07-20] MEDS ORDERED: SODIUM CHLORIDE 0.9% 1000 ML INFUS.BAG IV ONE (10:50)
[2022-07-20 11:21] LABS: BASO % 0.4 % (0-2.0); EOS % 1.1 % (0-4.5); HEMATOCRIT 44.8 % (35.4-49); HEMOGLOBIN 15.7 GM/dL (11.7-16.9); MCH 33.6 pg (25.7-33.7); MCHC 35.1 g/dl (32.0-35.9); MEAN CELL VOLUME 95.5 fl (80-96); MEAN PLT VOLUME 10.6 fl (7.5-11.1); MONO % 8.9 % (3.8-10.2); NEUT % 70.6 % (42.8-82.8); PLATELET COUNT 129 10^3/uL (134-434); RBC 4.69 M/mm3 (4.00-5.60); RDW 12.9 % (11.9-15.9); WHITE BLOOD COUNT 5.4 K/mm3 (4.0-10.0)
[2022-07-20 11:52] LABS: POTASSIUM 4.5 mmol/L (3.5-5.1)
[2022-07-20 11:53] LABS: CALCIUM 9.6 mg/dL (8.5-10.1)
[2022-07-20 11:54] LABS: BLOOD UREA NITROGEN 10.8 mg/dL (7-18)
[2022-07-20 11:57] LABS: CREATININE 0.8 mg/dL (0.55-1.3)
[2022-07-20 12:13] LABS: PH,URINE 7.5 (5.0-8.0); URINE APPEARANCE CLEAR; URINE BILIRUBIN NEGATIVE (NEGATIVE); URINE COLOR YELLOW; URINE GLUCOSE (UA) NEGATIVE (NEGATIVE); URINE KETONE NEGATIVE (NEGATIVE); URINE LEUK ESTERASE NEGATIVE (NEGATIVE); URINE NITRITE NEGATIVE (NEGATIVE); URINE PROTEIN NEGATIVE (NEGATIVE); URINE UROBILINOGEN 0.2 mg/dL (0.2-1.0)
== END 2022-07-20 16:18 | disposition home or self-care (01) ==
LOC: JER 09:13
DX: N39.9 Disorder of urinary system, unspecified (principal); R33.9 Retention of urine, unspecified
CPT/HCPCS: 36415; 80048; 81003; 85025; 87086; 99283-25

== ENCOUNTER 2022-08-10 09:15 | Emergency (ER) | payer OTHER ==
[2022-08-10 09:25] VITALS: RESP 18; BMI 17.4
[2022-08-10] MEDS ORDERED: SODIUM CHLORIDE 0.9% 500 ML INFUS.BAG IV ONE (10:56)
[2022-08-10] MEDS ORDERED: ACETAMINOPHEN 1000 MG/100 ML BAG IVPB ONE (10:56)
[2022-08-10] MEDS ORDERED: FAMOTIDINE 20 MG/50 ML IVPB 20 MG/50 ML MG IVPB ONE ×2 (10:56→11:13)
[2022-08-10] MEDS ORDERED: ACETAMINOPHEN INJECTION 100 ML IVPB ONE (11:13)
[2022-08-10 11:53] LABS: PH,URINE 6.5 (5.0-8.0); URINE APPEARANCE CLEAR; URINE BILIRUBIN NEGATIVE (NEGATIVE); URINE COLOR DK YELLOW; URINE GLUCOSE (UA) NEGATIVE (NEGATIVE); URINE KETONE TRACE (NEGATIVE); URINE LEUK ESTERASE NEGATIVE (NEGATIVE); URINE NITRITE NEGATIVE (NEGATIVE); URINE PROTEIN NEGATIVE (NEGATIVE)
[2022-08-10 12:18] LABS: BASO % 0.6 % (0-2.0); EOS % 1.5 % (0-4.5); HEMATOCRIT 46.1 % (35.4-49); HEMOGLOBIN 15.7 GM/dL (11.7-16.9); LYMPH % 22.8 % (8-40); MCH 33.2 pg (25.7-33.7); MEAN CELL VOLUME 97.6 fl (80-96); MEAN PLT VOLUME 10.5 fl (7.5-11.1); MONO % 8.4 % (3.8-10.2); NEUT % 66.7 % (42.8-82.8); PLATELET COUNT 110 10^3/uL (134-434); RBC 4.73 M/mm3 (4.00-5.60); RDW 12.6 % (11.9-15.9); WHITE BLOOD COUNT 4.6 K/mm3 (4.0-10.0)
[2022-08-10 12:43] LABS: POTASSIUM 4.5 mmol/L (3.5-5.1)
[2022-08-10 12:45] LABS: CALCIUM 9.1 mg/dL (8.5-10.1)
[2022-08-10 12:46] LABS: ALBUMIN 4.1 g/dl (3.4-5.0); BLOOD UREA NITROGEN 12.1 mg/dL (7-18); MAGNESIUM 2.3 mg/dL (1.8-2.4)
[2022-08-10 12:49] LABS: CREATININE 0.8 mg/dL (0.55-1.3); PHOSPHOROUS 3.7 mg/dL (2.5-4.9)
[2022-08-10 12:50] LABS: BILIRUBIN,TOTAL 0.4 mg/dL (0.2-1); TOT PROT 7.8 g/dl (6.4-8.2)
[2022-08-10 15:31] VITALS: BP 130/69; PULSE 57; TEMP 98.3
== END 2022-08-10 16:03 | disposition home or self-care (01) ==
LOC: JER 09:15
DX: R10.9 Unspecified abdominal pain (principal); N32.89 Other specified disorders of bladder; R63.4 Abnormal weight loss; G89.29 Other chronic pain; M25.572 Pain in left ankle and joints of left foot; M25.571 Pain in right ankle and joints of right foot; Z68.1 Body mass index [BMI] 19.9 or less, adult
CPT/HCPCS: 36415; 70450-TC; 74177-TC; 80053; 81003; 83690; 83735; 84100; 85025; 87086; 99285-25; Q9967

== ENCOUNTER 2023-01-18 10:15 | Emergency (ER) | payer OTHER ==
[2023-01-18 10:24] VITALS: RESP 18; BMI 16.2
[2023-01-18] MEDS ORDERED: SODIUM CHLORIDE 0.9% 1000 ML INFUS.BAG IV ONE (12:00)
[2023-01-18 12:20] LABS: BASO % 0.4 % (0-2.0); HEMATOCRIT 43.1 % (35.4-49); HEMOGLOBIN 14.5 GM/dL (11.7-16.9); LYMPH % 22.7 % (8-40); MCH 33.1 pg (25.7-33.7); MCHC 33.6 g/dl (32.0-35.9); MEAN CELL VOLUME 98.6 fl (80-96); MEAN PLT VOLUME 8.2 fl (7.5-11.1); MONO % 9.9 % (3.8-10.2); PLATELET COUNT 159 10^3/uL (134-434); RBC 4.37 M/mm3 (4.00-5.60); RDW 13.2 % (11.9-15.9); WHITE BLOOD COUNT 4.8 K/mm3 (4.0-10.0)
[2023-01-18 12:51] LABS: POTASSIUM 4.7 mmol/L (3.5-5.1)
[2023-01-18 12:53] LABS: CALCIUM 8.8 mg/dL (8.5-10.1)
[2023-01-18 12:54] LABS: ALBUMIN 3.8 g/dl (3.4-5.0); BLOOD UREA NITROGEN 10.1 mg/dL (7-18)
[2023-01-18 12:57] LABS: CREATININE 0.7 mg/dL (0.55-1.3)
[2023-01-18 12:58] LABS: BILIRUBIN,TOTAL 0.4 mg/dL (0.2-1); TOT PROT 7.2 g/dl (6.4-8.2)
[2023-01-18 13:43] LABS: PH,URINE 7.5 (5.0-8.0); URINE APPEARANCE CLEAR; URINE BILIRUBIN NEGATIVE (NEGATIVE); URINE COLOR YELLOW; URINE GLUCOSE (UA) NEGATIVE (NEGATIVE); URINE KETONE NEGATIVE (NEGATIVE); URINE LEUK ESTERASE NEGATIVE (NEGATIVE); URINE NITRITE NEGATIVE (NEGATIVE); URINE PROTEIN NEGATIVE (NEGATIVE)
[2023-01-18 14:54] VITALS: TEMP 98.3
[2023-01-18 16:21] VITALS: BP 105/57; PULSE 60
== END 2023-01-18 16:21 | disposition home or self-care (01) ==
LOC: JER 10:15
DX: R10.30 Lower abdominal pain, unspecified (principal); R14.0 Abdominal distension (gaseous); R63.0 Anorexia; R30.0 Dysuria; N40.1 Benign prostatic hyperplasia with lower urinary tract symptoms; B35.3 Tinea pedis
CPT/HCPCS: 36415; 76705-TC; 80053; 81003; 83690; 85025; 87086; 99284-25

== ENCOUNTER 2023-05-24 15:55 | Emergency (ER) | payer OTHER ==
[2023-05-24 15:58] VITALS: RESP 18; TEMP 98; BMI 18.1
[2023-05-24] MEDS ORDERED: ACETAMINOPHEN INJECTION 100 ML IVPB ONE (17:47)
[2023-05-24] MEDS: ACETAMINOPHEN 1000 MG/100 ML BAG IVPB ONE (17:51)
[2023-05-24] MEDS: ACETAMINOPHEN 500 MG TABLET (FP) PO ONE (17:51)
[2023-05-24 18:09] LABS: BASO % 0.2 % (0-2.0); EOS % 0.9 % (0-4.5); HEMATOCRIT 45.4 % (35.4-49); HEMOGLOBIN 15.9 GM/dL (11.7-16.9); MCH 33.5 pg (25.7-33.7); MEAN CELL VOLUME 95.8 fl (80-96); MEAN PLT VOLUME 9.8 fl (7.5-11.1); MONO % 7.3 % (3.8-10.2); NEUT % 71.6 % (42.8-82.8); PLATELET COUNT 154 10^3/uL (134-434); RBC 4.74 M/mm3 (4.00-5.60); RDW 12.8 % (11.9-15.9); WHITE BLOOD COUNT 8.5 K/mm3 (4.0-10.0)
[2023-05-24 18:10] LABS: PH,URINE 6.5 (5.0-8.0); URINE APPEARANCE CLEAR; URINE BILIRUBIN NEGATIVE (NEGATIVE); URINE COLOR YELLOW; URINE GLUCOSE (UA) NEGATIVE (NEGATIVE); URINE KETONE NEGATIVE (NEGATIVE); URINE LEUK ESTERASE NEGATIVE (NEGATIVE); URINE NITRITE NEGATIVE (NEGATIVE); URINE PROTEIN NEGATIVE (NEGATIVE); URINE UROBILINOGEN 0.2 mg/dL (0.2-1.0)
[2023-05-24 18:23] LABS: POTASSIUM 4.3 mmol/L (3.5-5.1)
[2023-05-24 18:25] LABS: CALCIUM 9.1 mg/dL (8.5-10.1)
[2023-05-24 18:26] LABS: ALBUMIN 4.1 g/dl (3.4-5.0); BLOOD UREA NITROGEN 11.9 mg/dL (7-18)
[2023-05-24 18:28] LABS: CREATININE 0.6 mg/dL (0.55-1.3)
[2023-05-24 18:30] LABS: BILIRUBIN,TOTAL 0.4 mg/dL (0.2-1); TOT PROT 7.6 g/dl (6.4-8.2)
[2023-05-24] MEDS ORDERED: KETOROLAC TROMETHAMINE 15 MG/ML VIAL ONE (20:09)
[2023-05-24] MEDS: KETOROLAC TROMETHAMINE 15 MG/ML VIAL IVPUSH ONE (20:22)
[2023-05-24] MEDS ORDERED: MAG HYDROX/AL HYDROX/SIMETH 30 ML UNIT-DOSE CUP ONE (20:57)
[2023-05-24] MEDS ORDERED: FAMOTIDINE 20 MG/50 ML IVPB 20 MG/50 ML MG IVPB ONE (20:57)
[2023-05-24] MEDS: MAG HYDROX/AL HYDROX/SIMETH 30 ML UNIT-DOSE CUP PO ONE (21:10)
[2023-05-24] MEDS: FAMOTIDINE 20 MG/50 ML IVPB 20 MG/50 ML MG IVPB ONE (21:10)
[2023-05-24] MEDS ORDERED: MAGNESIUM CITRATE 300 ML BOTTLE PO ONE (21:29)
[2023-05-24 21:57] VITALS: BP 111/72; PULSE 55
== END 2023-05-24 21:57 | disposition home or self-care (01) ==
LOC: JER 15:55
PROC: 3E033GC Introduction of Other Therapeutic Substance into Peripheral Vein, Percutaneous Approach (ICD-10-PCS; principal; 2023-05-24)
PROC: 3E033NZ Introduction of Analgesics, Hypnotics, Sedatives into Peripheral Vein, Percutaneous Approach (ICD-10-PCS; 2023-05-24)
PROC: 3E0333Z Introduction of Anti-inflammatory into Peripheral Vein, Percutaneous Approach (ICD-10-PCS; 2023-05-24)
PROC: 3E033GC Introduction of Other Therapeutic Substance into Peripheral Vein, Percutaneous Approach (ICD-10-PCS; 2023-05-24)
DX: R10.32 Left lower quadrant pain (principal); G89.29 Other chronic pain; K59.00 Constipation, unspecified; K80.20 Calculus of gallbladder without cholecystitis without obstruction
CPT/HCPCS: 36415; 74177-TC; 80053; 81003; 83690; 85025; 87086; 99284-25; J0131

== ENCOUNTER 2023-09-03 08:42 | Emergency (ER) | payer OTHER ==
[2023-09-03 08:58] VITALS: BP 121/68; PULSE 69; RESP 16; TEMP 98.8; BMI 18.3
[2023-09-03 11:02] LABS: BASO % 0.5 % (0-2.0); EOS % 1.3 % (0-4.5); HEMATOCRIT 45.5 % (35.4-49); HEMOGLOBIN 15.9 GM/dL (11.7-16.9); LYMPH % 23.2 % (8-40); MCH 33.7 pg (25.7-33.7); MCHC 34.9 g/dl (32.0-35.9); MEAN CELL VOLUME 96.7 fl (80-96); MEAN PLT VOLUME 9.5 fl (7.5-11.1); MONO % 8.3 % (3.8-10.2); NEUT % 66.7 % (42.8-82.8); PLATELET COUNT 129 10^3/uL (134-434); RBC 4.71 M/mm3 (4.00-5.60); RDW 12.9 % (11.9-15.9); WHITE BLOOD COUNT 5.7 K/mm3 (4.0-10.0)
[2023-09-03 11:28] LABS: POTASSIUM 5.3 mmol/L (3.5-5.1)
[2023-09-03 11:30] LABS: ALBUMIN 4.3 g/dl (3.4-5.0); BLOOD UREA NITROGEN 12.9 mg/dL (7-18); CALCIUM 9.1 mg/dL (8.5-10.1); MAGNESIUM 2.3 mg/dL (1.8-2.4)
[2023-09-03 11:32] LABS: CREATININE 0.6 mg/dL (0.55-1.3)
[2023-09-03 11:34] LABS: BILIRUBIN,TOTAL 0.5 mg/dL (0.2-1)
[2023-09-03 11:42] LABS: PH,URINE 5.5 (5.0-8.0); URINE APPEARANCE CLEAR; URINE BILIRUBIN NEGATIVE (NEGATIVE); URINE COLOR DK YELLOW; URINE GLUCOSE (UA) NEGATIVE (NEGATIVE); URINE KETONE 1+ (NEGATIVE); URINE LEUK ESTERASE NEGATIVE (NEGATIVE); URINE NITRITE NEGATIVE (NEGATIVE); URINE PROTEIN TRACE (NEGATIVE)
== END 2023-09-03 15:59 | disposition home or self-care (01) ==
LOC: JER 08:42
DX: M79.2 Neuralgia and neuritis, unspecified (principal); R30.0 Dysuria; F19.10 Other psychoactive substance abuse, uncomplicated; R19.7 Diarrhea, unspecified; R25.1 Tremor, unspecified; R25.3 Fasciculation; L08.9 Local infection of the skin and subcutaneous tissue, unspecified; R10.9 Unspecified abdominal pain; G89.29 Other chronic pain
CPT/HCPCS: 36415; 80053; 81003; 83735; 84100; 84484; 85025; 87086; 93005; 93010; 99284-25

== ENCOUNTER 2023-09-17 08:55 | Emergency (ER) | payer OTHER ==
[2023-09-17 09:05] VITALS: RESP 16; BMI 17.8
[2023-09-17] MEDS ORDERED: ACETAMINOPHEN INJECTION 100 ML IVPB ONE (10:54)
[2023-09-17] MEDS: SODIUM CHLORIDE 1,000 ML IV STA (11:12)
[2023-09-17] MEDS: ACETAMINOPHEN 1000 MG/100 ML BAG IVPB ONE (11:12)
[2023-09-17 11:15] LABS: BASO % 0.4 % (0-2.0); EOS % 1.1 % (0-4.5); HEMATOCRIT 44.5 % (35.4-49); HEMOGLOBIN 15.5 GM/dL (11.7-16.9); LYMPH % 21.3 % (8-40); MCH 33.6 pg (25.7-33.7); MCHC 34.8 g/dl (32.0-35.9); MEAN CELL VOLUME 96.3 fl (80-96); MEAN PLT VOLUME 9.9 fl (7.5-11.1); MONO % 6.5 % (3.8-10.2); NEUT % 70.7 % (42.8-82.8); PLATELET COUNT 128 10^3/uL (134-434); RBC 4.62 M/mm3 (4.00-5.60); WHITE BLOOD COUNT 6.1 K/mm3 (4.0-10.0)
[2023-09-17 11:49] LABS: POTASSIUM 4.8 mmol/L (3.5-5.1)
[2023-09-17 11:51] LABS: CALCIUM 8.8 mg/dL (8.5-10.1)
[2023-09-17 11:52] LABS: ALBUMIN 4.1 g/dl (3.4-5.0); MAGNESIUM 2.4 mg/dL (1.8-2.4)
[2023-09-17 11:55] LABS: CREATININE 0.7 mg/dL (0.55-1.3)
[2023-09-17 11:57] LABS: BILIRUBIN,TOTAL 0.5 mg/dL (0.2-1); TOT PROT 7.9 g/dl (6.4-8.2)
[2023-09-17 13:51] LABS: PH,URINE 5.5 (5.0-8.0); URINE APPEARANCE CLEAR; URINE BILIRUBIN NEGATIVE (NEGATIVE); URINE COLOR DK YELLOW; URINE GLUCOSE (UA) NEGATIVE (NEGATIVE); URINE KETONE 1+ (NEGATIVE); URINE LEUK ESTERASE NEGATIVE (NEGATIVE); URINE NITRITE NEGATIVE (NEGATIVE); URINE PROTEIN NEGATIVE (NEGATIVE)
[2023-09-17 15:31] VITALS: BP 113/65; PULSE 45; TEMP 98.1
== END 2023-09-17 17:00 | disposition home or self-care (01) ==
LOC: JER 08:55
DX: K59.00 Constipation, unspecified (principal); R10.9 Unspecified abdominal pain; G89.29 Other chronic pain; R39.198 Other difficulties with micturition; R25.1 Tremor, unspecified; F41.9 Anxiety disorder, unspecified
CPT/HCPCS: 36415; 74177-TC; 80053; 81003; 83690; 83735; 85025; 87086; 99285-25; Q9967

== ENCOUNTER 2023-10-27 09:00 | Emergency (ER) | payer OTHER ==
[2023-10-27 09:16] VITALS: BP 114/71; PULSE 62; RESP 18; TEMP 98.7; BMI 18.1
[2023-10-27 10:55] LABS: BASO % 0.3 % (0-2.0); EOS % 1.1 % (0-4.5); HEMATOCRIT 44.7 % (35.4-49); HEMOGLOBIN 15.7 GM/dL (11.7-16.9); MCH 33.6 pg (25.7-33.7); MCHC 35.2 g/dl (32.0-35.9); MEAN CELL VOLUME 95.6 fl (80-96); MEAN PLT VOLUME 9.3 fl (7.5-11.1); MONO % 8.4 % (3.8-10.2); NEUT % 70.2 % (42.8-82.8); PLATELET COUNT 137 10^3/uL (134-434); RBC 4.67 M/mm3 (4.00-5.60); WHITE BLOOD COUNT 5.6 K/mm3 (4.0-10.0)
[2023-10-27 11:19] LABS: PH,URINE 6.5 (5.0-8.0); URINE APPEARANCE CLEAR; URINE BILIRUBIN NEGATIVE (NEGATIVE); URINE COLOR YELLOW; URINE GLUCOSE (UA) NEGATIVE (NEGATIVE); URINE KETONE TRACE (NEGATIVE); URINE LEUK ESTERASE NEGATIVE (NEGATIVE); URINE NITRITE NEGATIVE (NEGATIVE); URINE PROTEIN NEGATIVE (NEGATIVE)
[2023-10-27 11:26] LABS: POTASSIUM 4.2 mmol/L (3.5-5.1)
[2023-10-27 11:28] LABS: ALBUMIN 4.2 g/dl (3.4-5.0); BLOOD UREA NITROGEN 12.6 mg/dL (7-18); MAGNESIUM 2.3 mg/dL (1.8-2.4)
[2023-10-27 11:31] LABS: CREATININE 0.7 mg/dL (0.55-1.3)
[2023-10-27 11:33] LABS: BILIRUBIN,TOTAL 0.4 mg/dL (0.2-1); TOT PROT 7.6 g/dl (6.4-8.2)
== END 2023-10-27 13:53 | disposition home or self-care (01) ==
LOC: JER 09:00
DX: R10.32 Left lower quadrant pain (principal); R30.0 Dysuria; R19.7 Diarrhea, unspecified
CPT/HCPCS: 36415; 74177-TC; 80053; 81003; 83690; 83735; 85025; 87086; 93005; 93010; 99285-25; Q9967

== ENCOUNTER 2024-01-26 11:32 | Emergency (ER) | payer OTHER ==
[2024-01-26 11:43] VITALS: BP 129/80; PULSE 70; RESP 18; TEMP 98.2; BMI 17.4
[2024-01-26] MEDS ORDERED: ACETAMINOPHEN INJECTION 100 ML ONE (13:06)
[2024-01-26] MEDS: ACETAMINOPHEN 1000 MG/100 ML BAG IVPB ONE (13:06)
[2024-01-26 13:34] LABS: BASO % 0.4 % (0-2.0); EOS % 1.1 % (0-4.5); HEMATOCRIT 44.5 % (35.4-49); HEMOGLOBIN 15.1 GM/dL (11.7-16.9); LYMPH % 21.2 % (8-40); MCHC 33.8 g/dl (32.0-35.9); MEAN CELL VOLUME 97.7 fl (80-96); MEAN PLT VOLUME 10.4 fl (7.5-11.1); MONO % 8.6 % (3.8-10.2); NEUT % 68.7 % (42.8-82.8); PLATELET COUNT 147 10^3/uL (134-434); RBC 4.56 M/mm3 (4.00-5.60); RDW 12.8 % (11.9-15.9); WHITE BLOOD COUNT 6.3 K/mm3 (4.0-10.0)
[2024-01-26 13:47] LABS: POTASSIUM 4.1 mmol/L (3.5-5.1)
[2024-01-26 13:49] LABS: CALCIUM 9.1 mg/dL (8.5-10.1)
[2024-01-26 13:50] LABS: ALBUMIN 4.1 g/dl (3.4-5.0); BLOOD UREA NITROGEN 11.9 mg/dL (7-18); MAGNESIUM 2.2 mg/dL (1.8-2.4)
[2024-01-26 13:53] LABS: CREATININE 0.7 mg/dL (0.55-1.3)
[2024-01-26 13:54] LABS: BILIRUBIN,TOTAL 0.3 mg/dL (0.2-1); TOT PROT 7.4 g/dl (6.4-8.2)
[2024-01-26 15:06] LABS: URINE APPEARANCE CLEAR; URINE COLOR YELLOW
[2024-01-26 15:07] LABS: URINE BILIRUBIN NEGATIVE (NEGATIVE); URINE GLUCOSE (UA) NEGATIVE (NEGATIVE); URINE KETONE NEGATIVE (NEGATIVE)
[2024-01-26 15:08] LABS: URINE LEUK ESTERASE NEGATIVE (NEGATIVE); URINE NITRITE NEGATIVE (NEGATIVE); URINE PROTEIN NEGATIVE (NEGATIVE); URINE UROBILINOGEN 0.2 mg/dL (0.2-1.0)
== END 2024-01-26 16:39 | disposition home or self-care (01) ==
LOC: JER 11:32
DX: R10.84 Generalized abdominal pain (principal); G89.29 Other chronic pain; Z20.822 Contact with and (suspected) exposure to COVID-19
CPT/HCPCS: 0241U-QW; 36415; 74177-TC; 80053; 81003; 83690; 83735; 85025; 87086; 93005; 93010; 99285-25; J0131; Q9967

== ENCOUNTER 2024-03-12 11:41 | Emergency (ER) | payer OTHER ==
[2024-03-12 12:46] VITALS: BP 120/71; PULSE 109; RESP 18; TEMP 98.6; BMI 17.9
[2024-03-12] MEDS ORDERED: FAMOTIDINE 20 MG/50 ML IVPB 20 MG/50 ML MG IVPB ONE (13:13)
[2024-03-12] MEDS ORDERED: ACETAMINOPHEN INJECTION 100 ML ONE (13:13)
[2024-03-12] MEDS: SODIUM CHLORIDE 0.9% 500 ML INFUS.BAG IV ONE (13:26)
[2024-03-12] MEDS: ACETAMINOPHEN 1000 MG/100 ML BAG IVPB ONE (13:27)
[2024-03-12] MEDS: FAMOTIDINE 20 MG/50 ML IVPB 20 MG/50 ML MG IVPB ONE (13:27)
[2024-03-12 13:30] LABS: BASO % 0.3 % (0-2.0); EOS % 1.1 % (0-4.5); HEMATOCRIT 46.1 % (35.4-49); HEMOGLOBIN 15.8 GM/dL (11.7-16.9); LYMPH % 24.8 % (8-40); MCH 33.5 pg (25.7-33.7); MCHC 34.3 g/dl (32.0-35.9); MEAN CELL VOLUME 97.4 fl (80-96); MEAN PLT VOLUME 10.4 fl (7.5-11.1); MONO % 8.6 % (3.8-10.2); NEUT % 65.2 % (42.8-82.8); PLATELET COUNT 144 10^3/uL (134-434); RBC 4.74 M/mm3 (4.00-5.60); WHITE BLOOD COUNT 5.8 K/mm3 (4.0-10.0)
[2024-03-12 13:37] LABS: INR 1.05 (0.83-1.09); PROTHROMBIN TIME (PATIENT) 11.8 SEC (9.7-13.0)
[2024-03-12 13:40] LABS: ACTIVATED PTT 32.9 SECONDS (25.2-36.5)
[2024-03-12 14:06] LABS: PH,URINE 5.5 (5.0-8.0); URINE APPEARANCE CLEAR; URINE BILIRUBIN NEGATIVE (NEGATIVE); URINE COLOR DK YELLOW; URINE GLUCOSE (UA) NEGATIVE (NEGATIVE); URINE KETONE TRACE (NEGATIVE); URINE LEUK ESTERASE NEGATIVE (NEGATIVE); URINE NITRITE NEGATIVE (NEGATIVE); URINE PROTEIN NEGATIVE (NEGATIVE)
[2024-03-12 14:28] LABS: ALBUMIN 4.4 g/dl (3.4-5.0); BILIRUBIN,TOTAL 0.3 mg/dL (0.2-1); BLOOD UREA NITROGEN 11.9 mg/dL (7-18); CALCIUM 9.2 mg/dL (8.5-10.1); CREATININE 0.7 mg/dL (0.55-1.3); MAGNESIUM 2.3 mg/dL (1.8-2.4); POTASSIUM 4.3 mmol/L (3.5-5.1); TOT PROT 7.7 g/dl (6.4-8.2)
[2024-03-12] MEDS ORDERED: METOCLOPRAMIDE HCL INJECTION 10 MG/2 ML VIAL ONE (14:57)
[2024-03-12] MEDS: METOCLOPRAMIDE HCL INJECTION 10 MG/2 ML VIAL IVPB ONE (15:09)
== END 2024-03-12 15:40 | disposition left against medical advice (07) ==
LOC: JER 11:41
PROC: 3E033GC Introduction of Other Therapeutic Substance into Peripheral Vein, Percutaneous Approach (ICD-10-PCS; principal; 2024-03-12)
PROC: 3E033NZ Introduction of Analgesics, Hypnotics, Sedatives into Peripheral Vein, Percutaneous Approach (ICD-10-PCS; 2024-03-12)
DX: K59.00 Constipation, unspecified (principal); R63.4 Abnormal weight loss; H91.90 Unspecified hearing loss, unspecified ear; R10.9 Unspecified abdominal pain; L08.9 Local infection of the skin and subcutaneous tissue, unspecified; R21 Rash and other nonspecific skin eruption
CPT/HCPCS: 36415; 80053; 81003; 83605; 83690; 83735; 84484; 85025; 85610; 85730; 87086; 99284-25; J0131

== ENCOUNTER 2024-07-15 10:13 | Inpatient (IN) | payer OTHER ==
[2024-07-15 10:20] VITALS: BMI 16.6
[2024-07-15] MEDS ORDERED: FAMOTIDINE 20 MG/50 ML IVPB 20 MG/50 ML MG IVPB ONE (11:18)
[2024-07-15] MEDS ORDERED: DICYCLOMINE HCL 10 MG CAPSULE ONE (11:18)
[2024-07-15] MEDS: DICYCLOMINE HCL 10 MG/5 ML PO ONE (11:43)
[2024-07-15 11:52] LABS: ABSOLUTE IMMATURE GRANULOCYTES 0.01 x10^3/uL (0.0-0.031); HEMATOCRIT 45.7 % (40.1-51.0); MEAN CELL VOLUME 96.8 fl (79.0-92.2); RDW 11.9 % (12.2-16.1)
[2024-07-15 11:54] LABS: BASOPHILS # 0.02 x10^3/uL (0.01-0.08); EOSINOPHIL % 1.5 % (0.8-7.0); EOSINOPHILS # 0.08 x10^3/uL (0.04-0.54); HEMOGLOBIN 16.1 g/dL (13.7-17.5); MCHC 35.2 g/dl (32.3-36.5); MEAN PLT VOLUME 11.8 fl (9.4-12.4); MONOCYTE % 9.1 % (5.3-12.2); PLATELET COUNT 125 x10^3/uL (163-337)
[2024-07-15] MEDS: FAMOTIDINE 20 MG/50 ML IVPB 20 MG/50 ML MG IVPB ONE (12:00)
[2024-07-15 12:13] LABS: POTASSIUM 4.2 mmol/L (3.5-5.1)
[2024-07-15 12:16] LABS: ALBUMIN 4.5 g/dl (3.4-5.0); BLOOD UREA NITROGEN 13.2 mg/dL (7-18); CALCIUM 9.8 mg/dL (8.5-10.1); MAGNESIUM 2.4 mg/dL (1.8-2.4)
[2024-07-15 12:20] LABS: BILIRUBIN,TOTAL 0.4 mg/dL (0.2-1); CREATININE 0.8 mg/dL (0.55-1.3)
[2024-07-15] MEDS: SODIUM CHLORIDE 1,000 ML IV STA (12:58)
[2024-07-15] MEDS: IMIPENEM/CILASTATIN SODIUM 500 MG in SODIUM CHLORIDE 100 ML IV ONE (16:22)
[2024-07-15] MEDS ORDERED: ACETAMINOPHEN 325 MG TABLET (FP) PO PRN ×3 (16:46→23:51)
[2024-07-15] MEDS ORDERED: KETOROLAC TROMETHAMINE 15 MG/ML VIAL IVPUSH PRN (16:47)
[2024-07-15] MEDS: ALPRAZolam 1 MG TABLET PO PRN (16:48)
[2024-07-15] MEDS: MINERAL OIL/PET HY-PHL TOPICAL OINTMENT 454 GM JAR TP SCH (18:42)
[2024-07-16 07:09] LABS: HEMATOCRIT 41.5 % (40.1-51.0); HEMOGLOBIN 14.7 g/dL (13.7-17.5); MCHC 35.4 g/dl (32.3-36.5); MEAN CELL VOLUME 95.2 fl (79.0-92.2); MEAN PLT VOLUME 11.9 fl (9.4-12.4); PLATELET COUNT 109 x10^3/uL (163-337); RDW 11.7 % (12.2-16.1)
[2024-07-16 07:24] LABS: POTASSIUM 4.1 mmol/L (3.5-5.1)
[2024-07-16 07:32] LABS: BLOOD UREA NITROGEN 11.2 mg/dL (7-18); CALCIUM 9.4 mg/dL (8.5-10.1)
[2024-07-16 07:33] LABS: ALBUMIN 4.1 g/dl (3.4-5.0); MAGNESIUM 2.1 mg/dL (1.8-2.4)
[2024-07-16 07:36] LABS: BILIRUBIN,TOTAL 0.7 mg/dL (0.2-1); CREATININE 0.6 mg/dL (0.55-1.3); PHOSPHOROUS 3.6 mg/dL (2.5-4.9)
[2024-07-16] MEDS: MINERAL OIL/PET HY-PHL TOPICAL OINTMENT 454 GM JAR TP SCH (09:33)
[2024-07-16] MEDS: DEXTROSE 5%-NORMAL SALINE 1,000 ML IV SCH (12:40)
[2024-07-16] MEDS: PANTOPRAZOLE SODIUM 40 MG VIAL IVPUSH SCH (12:40)
[2024-07-16] MEDS: KETOROLAC TROMETHAMINE 15 MG/ML VIAL IVPUSH PRN (16:07)
[2024-07-16] MEDS: ALPRAZolam 1 MG TABLET PO PRN (16:15)
[2024-07-16 17:07] LABS: N-TERMINAL BNP 128.7 pg/ml (5-125)
[2024-07-16] MEDS: POLYETHYLENE GLYCOL (HEALTHYLAX) 3350 17 GM PACKET PO ONE (18:18)
[2024-07-17 06:41] VITALS: RESP 20
[2024-07-17 07:48] LABS: POTASSIUM 3.9 mmol/L (3.5-5.1)
[2024-07-17 07:55] LABS: BLOOD UREA NITROGEN 10.9 mg/dL (7-18); MAGNESIUM 2.1 mg/dL (1.8-2.4)
[2024-07-17 07:58] LABS: PHOSPHOROUS 3.9 mg/dL (2.5-4.9)
[2024-07-17 07:59] LABS: CREATININE 0.7 mg/dL (0.55-1.3)
[2024-07-17 08:00] LABS: BILIRUBIN,TOTAL 0.8 mg/dL (0.2-1); TOT PROT 6.8 g/dl (6.4-8.2)
[2024-07-17 08:15] LABS: HEMOGLOBIN 14.4 g/dL (13.7-17.5); MCHC 34.3 g/dl (32.3-36.5); MEAN CELL VOLUME 96.8 fl (79.0-92.2); MEAN PLT VOLUME 12.2 fl (9.4-12.4); PLATELET COUNT 110 x10^3/uL (163-337)
[2024-07-17] MEDS: TAMSULOSIN HCL 0.4 MG CAP PO SCH (09:01)
[2024-07-17] MEDS: FINASTERIDE 5 MG TABLET (FP) PO SCH (13:21)
[2024-07-17 14:53] VITALS: BP 96/69; PULSE 88; TEMP 98.2
== END 2024-07-17 16:21 | disposition left against medical advice (07) ==
LOC: JER 10:13 → UNDOADMOB 14:28 → INTOOBSV 14:28 → JERBED 14:28 → J8W 15:26 → J4W 07-16 00:02 → OBSVTOIN 07-17 12:02
PROVIDERS: ADMIT Internal Medicine; ATTEND Internal Medicine
DX: K80.50 Calculus of bile duct without cholangitis or cholecystitis without obstruction (principal); J44.9 Chronic obstructive pulmonary disease, unspecified; N40.0 Benign prostatic hyperplasia without lower urinary tract symptoms; F41.9 Anxiety disorder, unspecified; F17.200 Nicotine dependence, unspecified, uncomplicated; F31.9 Bipolar disorder, unspecified; D69.6 Thrombocytopenia, unspecified; R00.1 Bradycardia, unspecified; E43 Unspecified severe protein-calorie malnutrition; R64 Cachexia; Z68.1 Body mass index [BMI] 19.9 or less, adult
CPT/HCPCS: 36415; 71275-TC; 74174-TC; 76705-TC; 80053; 80061; 83036; 83605; 83690; 83735; 83880; 84100; 84443; 85025; 85027; 86850; 86900; 86901; 93005; 93010; 93306-TC; 99285-25; G0378

== ENCOUNTER 2024-08-17 11:06 | Day surgery (SDC) | payer OTHER ==
[2024-08-17 12:38] LABS: ABSOLUTE IMMATURE GRANULOCYTES 0.01 x10^3/uL (0.0-0.031); BASOPHILS # 0.05 x10^3/uL (0.01-0.08); EOSINOPHIL % 1.7 % (0.8-7.0); EOSINOPHILS # 0.11 x10^3/uL (0.04-0.54); HEMATOCRIT 41.2 % (40.1-51.0); HEMOGLOBIN 14.3 g/dL (13.7-17.5); MCHC 34.7 g/dl (32.3-36.5); MEAN CELL VOLUME 96.7 fl (79.0-92.2); MEAN PLT VOLUME 10.7 fl (9.4-12.4); MONOCYTE # 0.56 x10^3/uL (0.30-0.82); MONOCYTE % 8.9 % (5.3-12.2); PLATELET COUNT 143 x10^3/uL (163-337); RDW 12.2 % (12.2-16.1)
[2024-08-17] MEDS ORDERED: ONDANSETRON 4 MG/2 ML VIAL ONE (12:38)
[2024-08-17] MEDS ORDERED: morphine SULFATE 4 MG/ML VIAL ONE (12:38)
[2024-08-17] MEDS: morphine SULFATE 4 MG/ML VIAL IVPUSH ONE (12:49)
[2024-08-17] MEDS: ONDANSETRON 4 MG/2 ML VIAL IVPB ONE (12:51)
[2024-08-17 13:13] LABS: POTASSIUM 4.7 mmol/L (3.5-5.1)
[2024-08-17 13:14] LABS: ALBUMIN 4.1 g/dl (3.4-5.0); BLOOD UREA NITROGEN 18.8 mg/dL (7-18); CALCIUM 9.6 mg/dL (8.5-10.1)
[2024-08-17] MEDS: LACTATED RINGERS SOLUTION 1000 ML INFUS.BAG IV ONE (13:15)
[2024-08-17 13:16] LABS: MAGNESIUM 2.4 mg/dL (1.8-2.4)
[2024-08-17 13:18] LABS: CREATININE 0.8 mg/dL (0.55-1.3)
[2024-08-17 13:20] LABS: BILIRUBIN,TOTAL 0.4 mg/dL (0.2-1); TOT PROT 7.4 g/dl (6.4-8.2)
[2024-08-17 13:30] LABS: INR 1.07 (0.83-1.09); PROTHROMBIN TIME (PATIENT) 11.8 SEC (9.7-13.0)
[2024-08-17 13:33] LABS: ACTIVATED PTT 21.5 SECONDS (25.2-36.5)
[2024-08-17] MEDS ORDERED: ALPRAZolam 1 MG TABLET ONE (18:04)
[2024-08-17] MEDS: ALPRAZolam 1 MG TABLET PO PRN (18:11)
[2024-08-17] MEDS: LACTULOSE 20 GM/30 ML UDC (FOR ORAL USE ONLY) PO SCH (23:27)
[2024-08-17] MEDS: PREGABALIN 25 MG CAPSULE PO SCH (23:27)
[2024-08-18 01:38] VITALS: BMI 17.2
[2024-08-18 07:33] LABS: ABSOLUTE IMMATURE GRANULOCYTES 0.01 x10^3/uL (0.0-0.031); BASOPHILS # 0.03 x10^3/uL (0.01-0.08)
[2024-08-18 07:35] LABS: EOSINOPHIL % 4.7 % (0.8-7.0); EOSINOPHILS # 0.17 x10^3/uL (0.04-0.54); HEMATOCRIT 40.8 % (40.1-51.0); HEMOGLOBIN 13.7 g/dL (13.7-17.5); MCHC 33.6 g/dl (32.3-36.5); MEAN CELL VOLUME 97.8 fl (79.0-92.2); MONOCYTE # 0.44 x10^3/uL (0.30-0.82); MONOCYTE % 12.1 % (5.3-12.2); PLATELET COUNT 128 x10^3/uL (163-337); RDW 12.2 % (12.2-16.1)
[2024-08-18 07:58] LABS: POTASSIUM 4.7 mmol/L (3.5-5.1)
[2024-08-18 08:00] LABS: ALBUMIN 3.8 g/dl (3.4-5.0); BLOOD UREA NITROGEN 15.6 mg/dL (7-18); CALCIUM 9.2 mg/dL (8.5-10.1); MAGNESIUM 2.5 mg/dL (1.8-2.4)
[2024-08-18 08:05] LABS: BILIRUBIN,TOTAL 0.5 mg/dL (0.2-1); CREATININE 0.7 mg/dL (0.55-1.3); PHOSPHOROUS 4.2 mg/dL (2.5-4.9); TOT PROT 6.7 g/dl (6.4-8.2)
[2024-08-18] MEDS: CLOTRIMAZOLE 1% CREAM TP SCH (21:35)
[2024-08-19 07:50] LABS: ABSOLUTE IMMATURE GRANULOCYTES 0.01 x10^3/uL (0.0-0.031); HEMOGLOBIN 14.1 g/dL (13.7-17.5)
[2024-08-19 07:51] LABS: BASOPHILS # 0.03 x10^3/uL (0.01-0.08); EOSINOPHIL % 4.2 % (0.8-7.0); EOSINOPHILS # 0.21 x10^3/uL (0.04-0.54); HEMATOCRIT 40.7 % (40.1-51.0); MCHC 34.6 g/dl (32.3-36.5); MEAN CELL VOLUME 96.4 fl (79.0-92.2); MEAN PLT VOLUME 11.1 fl (9.4-12.4); MONOCYTE # 0.51 x10^3/uL (0.30-0.82); MONOCYTE % 10.3 % (5.3-12.2); PLATELET COUNT 140 x10^3/uL (163-337); RDW 11.9 % (12.2-16.1)
[2024-08-19 08:21] LABS: POTASSIUM 4.3 mmol/L (3.5-5.1)
[2024-08-19 09:00] LABS: CALCIUM 9.1 mg/dL (8.5-10.1)
[2024-08-19 09:01] LABS: ALBUMIN 3.8 g/dl (3.4-5.0); BLOOD UREA NITROGEN 16.1 mg/dL (7-18)
[2024-08-19 09:04] LABS: CREATININE 0.6 mg/dL (0.55-1.3)
[2024-08-19 09:05] LABS: BILIRUBIN,TOTAL 0.6 mg/dL (0.2-1); TOT PROT 6.7 g/dl (6.4-8.2)
[2024-08-19] MEDS ORDERED: BUPIVACAINE HCL/PF 0.25% (2.5MG/ML) 10 ML VIAL ONE (13:19)
[2024-08-19] MEDS ORDERED: PROPOFOL 40 ML ONE (13:55)
[2024-08-19] MEDS ORDERED: MIDAZOLAM HCL 2 MG/2 ML SINGLE DOSE VIAL ONE (13:55)
[2024-08-19] MEDS ORDERED: SUCCINYLCHOLINE CHLORIDE 200 MG/10 ML SYRINGE ONE (13:58)
[2024-08-19] MEDS ORDERED: ROCURONIUM BROMIDE 50 MG/5 ML SYRINGE ONE (13:58)
[2024-08-19] MEDS ORDERED: CEFOXITIN SODIUM 2 GM IVPB ONE (14:14)
[2024-08-19] MEDS: cefoTEtan DISODIUM 1 GM VIAL (RESTRICTED TO ID) IVPB ONE ×2 (14:34)
[2024-08-19] MEDS: BUPIVACAINE HCL/PF 0.25% (2.5MG/ML) 10 ML VIAL IJ ONE ×3 (14:34)
[2024-08-19] MEDS ORDERED: DEXAMETHASONE SOD PHOSPHATE 4 MG/1 ML VIAL ONE (15:06)
[2024-08-19] MEDS ORDERED: ONDANSETRON 4 MG/2 ML VIAL ONE (15:06)
[2024-08-19] MEDS ORDERED: SUGAMMADEX SODIUM 200 MG/2 ML VIAL ONE (15:16)
[2024-08-19] MEDS ORDERED: ONDANSETRON 4 MG/2 ML VIAL IVPUSH PRN ×2 (15:40→15:51)
[2024-08-19] MEDS: ACETAMINOPHEN 1000 MG/100 ML BAG IVPB ONE ×2 (15:57→16:14)
[2024-08-19] MEDS: LACTATED RINGERS SOLUTION 1,000 ML IV SCH ×2 (16:15→17:15)
[2024-08-19] MEDS ORDERED: ACETAMINOPHEN 1000 MG/100 ML BAG IVPB PRN (16:30)
[2024-08-19] MEDS: ALPRAZolam 1 MG TABLET PO PRN (18:21)
[2024-08-19] MEDS: KETOROLAC TROMETHAMINE 15 MG/ML VIAL IVPUSH PRN (18:21)
[2024-08-19] MEDS: CEFOXITIN SODIUM 1 GM in DEXTROSE 5%-WATER 100 ML IVPB SCH (21:11)
[2024-08-19] MEDS: PREGABALIN 25 MG CAPSULE PO SCH (21:12)
[2024-08-19] MEDS: LACTULOSE 20 GM/30 ML UDC (FOR ORAL USE ONLY) PO SCH (21:13)
[2024-08-19] MEDS: CLOTRIMAZOLE 1% CREAM TP SCH (21:25)
[2024-08-20 07:43] LABS: ABSOLUTE IMMATURE GRANULOCYTES 0.04 x10^3/uL (0.0-0.031)
[2024-08-20 07:45] LABS: BASOPHILS # 0.03 x10^3/uL (0.01-0.08); EOSINOPHIL % 0.9 % (0.8-7.0); EOSINOPHILS # 0.09 x10^3/uL (0.04-0.54); HEMATOCRIT 37.3 % (40.1-51.0); HEMOGLOBIN 12.7 g/dL (13.7-17.5); MEAN CELL VOLUME 97.4 fl (79.0-92.2); MEAN PLT VOLUME 11.3 fl (9.4-12.4); MONOCYTE # 0.85 x10^3/uL (0.30-0.82); MONOCYTE % 8.8 % (5.3-12.2); PLATELET COUNT 121 x10^3/uL (163-337)
[2024-08-20 07:54] LABS: POTASSIUM 4.1 mmol/L (3.5-5.1)
[2024-08-20 07:57] LABS: CALCIUM 8.7 mg/dL (8.5-10.1)
[2024-08-20 07:58] LABS: ALBUMIN 3.3 g/dl (3.4-5.0); BLOOD UREA NITROGEN 19.2 mg/dL (7-18)
[2024-08-20 08:01] LABS: CREATININE 0.7 mg/dL (0.55-1.3)
[2024-08-20 08:04] LABS: BILIRUBIN,TOTAL 0.5 mg/dL (0.2-1)
[2024-08-20] MEDS: LACTATED RINGERS SOLUTION 1,000 ML IV SCH (11:00)
[2024-08-20] MEDS: ACETAMINOPHEN 325 MG TABLET (FP) PO SCH (11:19)
[2024-08-20] MEDS: IBUPROFEN 600 MG TABLET (FP) PO SCH (12:55)
[2024-08-20] MEDS: oxyCODONE HCL 5 MG TABLET PO PRN (15:11)
[2024-08-20] MEDS: POLYETHYLENE GLYCOL (HEALTHYLAX) 3350 17 GM PACKET PO ONE (15:16)
[2024-08-20] MEDS ORDERED: LACTATED RINGERS SOLUTION 1,000 ML IV SCH (21:34)
[2024-08-20] MEDS: SENNOSIDES 8.8 MG/5 ML SYRUP PO SCH (22:44)
[2024-08-20] MEDS: TAMSULOSIN HCL 0.4 MG CAP PO SCH (22:58)
[2024-08-21] MEDS: HYDROmorphone HCL CARPU-JECT 2 MG/1 ML DISP.SYRIN IVPB PRN (05:44)
[2024-08-21 07:32] LABS: ABSOLUTE IMMATURE GRANULOCYTES 0.02 x10^3/uL (0.0-0.031); EOSINOPHIL % 4.1 % (0.8-7.0)
[2024-08-21 07:34] LABS: BASOPHILS # 0.03 x10^3/uL (0.01-0.08); EOSINOPHILS # 0.27 x10^3/uL (0.04-0.54); HEMOGLOBIN 11.8 g/dL (13.7-17.5); MCHC 33.7 g/dl (32.3-36.5); MEAN CELL VOLUME 98.9 fl (79.0-92.2); MEAN PLT VOLUME 11.4 fl (9.4-12.4); MONOCYTE % 10.8 % (5.3-12.2); PLATELET COUNT 114 x10^3/uL (163-337); RDW 12.3 % (12.2-16.1)
[2024-08-21 07:56] LABS: POTASSIUM 4.2 mmol/L (3.5-5.1)
[2024-08-21 08:08] LABS: ALBUMIN 3.3 g/dl (3.4-5.0); CALCIUM 8.7 mg/dL (8.5-10.1)
[2024-08-21 08:09] LABS: BLOOD UREA NITROGEN 16.6 mg/dL (7-18)
[2024-08-21 08:11] LABS: CREATININE 0.6 mg/dL (0.55-1.3)
[2024-08-21 08:13] LABS: BILIRUBIN,TOTAL 0.5 mg/dL (0.2-1); TOT PROT 5.8 g/dl (6.4-8.2)
[2024-08-21] MEDS ORDERED: TAMSULOSIN HCL 0.4 MG CAP PO SCH (08:30)
[2024-08-21] MEDS ORDERED: IBUPROFEN 400 MG TABLET (FP) PO PRN (10:21)
[2024-08-21] MEDS ORDERED: HYDROmorphone HCl 2 MG/ML VIAL IVPB PRN (11:26)
[2024-08-21 13:18] VITALS: BP 114/76; PULSE 57; RESP 100; TEMP 97.9
== END 2024-08-21 17:20 | disposition home health service (06) ==
LOC: JER 11:06 → JERBED 14:31 → UNDOADMOB 14:31 → JASUSAT 14:32 → SUATTDRO 14:32 → J4W 21:17 → JERBED 21:17 → J4W 21:37 → JASUSAT 08-21 17:20
PROVIDERS: ATTEND Internal Medicine
PROC: 3E033NZ Introduction of Analgesics, Hypnotics, Sedatives into Peripheral Vein, Percutaneous Approach (ICD-10-PCS; principal; 2024-08-17)
PROC: 3E033GC Introduction of Other Therapeutic Substance into Peripheral Vein, Percutaneous Approach (ICD-10-PCS; 2024-08-17)
DX: K80.20 Calculus of gallbladder without cholecystitis without obstruction (principal); R94.31 Abnormal electrocardiogram [ECG] [EKG]; R10.84 Generalized abdominal pain; R11.0 Nausea; K52.9 Noninfective gastroenteritis and colitis, unspecified; L21.9 Seborrheic dermatitis, unspecified
CPT/HCPCS: 36415; 71045-TC-FY; 74176-TC; 76705-TC; 80053; 82607; 82746; 82747; 82962; 83605; 83690; 83735; 84100; 84484; 85014; 85025; 85610; 85730; 86850; 86900; 86901; 88304-TC; 93005; 93010; 94760; 99285-25

== ENCOUNTER 2024-08-28 09:38 | Emergency (ER) | payer OTHER ==
[2024-08-28 09:46] VITALS: BMI 16.6
[2024-08-28] MEDS ORDERED: ACETAMINOPHEN INJECTION 100 ML ONE (10:39)
[2024-08-28] MEDS ORDERED: FAMOTIDINE 20 MG/50 ML IVPB 20 MG/50 ML MG IVPB ONE (10:40)
[2024-08-28] MEDS: FAMOTIDINE 20 MG/50 ML IVPB 20 MG/50 ML MG IVPB ONE (10:50)
[2024-08-28] MEDS: ACETAMINOPHEN 1000 MG/100 ML BAG IVPB ONE (10:50)
[2024-08-28 11:21] LABS: ABSOLUTE IMMATURE GRANULOCYTES 0.01 x10^3/uL (0.0-0.031); BASOPHILS # 0.04 x10^3/uL (0.01-0.08); EOSINOPHIL % 2.4 % (0.8-7.0); EOSINOPHILS # 0.13 x10^3/uL (0.04-0.54); MCHC 34.6 g/dl (32.3-36.5); MEAN CELL VOLUME 97.7 fl (79.0-92.2); MEAN PLT VOLUME 10.7 fl (9.4-12.4); MONOCYTE # 0.50 x10^3/uL (0.30-0.82); MONOCYTE % 9.2 % (5.3-12.2); RDW 12.0 % (12.2-16.1)
[2024-08-28 11:40] LABS: CO2 31.0 mmol/L (21-32); GLUCOSE,RANDOM 90.0 mg/dL (74-106)
[2024-08-28 11:43] LABS: CREATININE 0.8 mg/dL (0.55-1.3); SGOT/AST 36.0 U/L (15-37); SGPT/ALT 60.0 U/L (13-61)
[2024-08-28 11:44] LABS: TOT PROT 7.7 g/dl (6.4-8.2)
[2024-08-28 11:46] LABS: ALK PHOS 107.0 U/L (45-117)
[2024-08-28 14:17] VITALS: BP 106/75; PULSE 92; RESP 18; TEMP 98.3
== END 2024-08-28 14:25 | disposition home or self-care (01) ==
LOC: JER 09:38
DX: R10.32 Left lower quadrant pain (principal); G89.18 Other acute postprocedural pain
CPT/HCPCS: 36415; 74177-TC; 80053; 83735; 84484; 85025; 86140; 86850; 86900; 86901; 93005; 93010; 99285-25; Q9967